=== PATIENT | female | born 1975 | race Asian ===

== ENCOUNTER 2021-08-18 11:23 | Emergency (ER) | payer OTHER ==
[~2021-08-18] VITALS: Ht 162.6 cm; Wt 68.7 kg
[2021-08-18] MEDS ORDERED: IBUPROFEN 800 MG TAB PO ONE (13:50)
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
[2021-08-18] MEDS ORDERED: IBUP1TAB7 PO (14:40)
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
[2021-08-18] MEDS ORDERED: CYCL-707 PO (14:41)
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
[2021-08-18 14:57] VITALS: BP 118/68
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
== END 2021-08-18 15:13 | disposition home or self-care (01) ==
LOC: M ED 11:23
DX: S80.11XA Contusion of right lower leg, initial encounter (principal); S80.12XA Contusion of left lower leg, initial encounter; V49.49XA Driver injured in collision with other motor vehicles in traffic accident, initial encounter; Y92.410 Unspecified street and highway as the place of occurrence of the external cause; M50.30 Other cervical disc degeneration, unspecified cervical region; R07.89 Other chest pain

== ENCOUNTER → 2023-03-15 | Outpatient (CLI) | payer OTHER ==
[~2023-03-15] MED LIST: CYCL-707 PO; IBUP1TAB7 PO
== END ==
LOC: M WHC 08:40
PROVIDERS: ATTEND Nurse Practitioner Primary Care
DX: Z12.31 Encounter for screening mammogram for malignant neoplasm of breast (principal)